=== PATIENT | female | born 1985 | race Two or more races ===

== ENCOUNTER 2025-01-15 15:04 | Emergency (ER) | payer OTHER ==
[~2025-01-15] VITALS: Ht 152.4 cm; Wt 63.5 kg
[2025-01-15] MEDS ORDERED: CEFTRIAXONE SODIUM 1,000 MG VIAL IM ONE (17:30)
[2025-01-15] MEDS ORDERED: MONTELUKAST SODIUM 10 MG TABLET PO ONE (17:30)
[2025-01-15] MEDS ORDERED: LEVALBUTEROL HCL 1.25 MG/3 ML SOLUTION IH ONE ×2 (17:30→19:37)
[2025-01-15] MEDS ORDERED: METHYLPREDNISOLONE SOD SUCC 125 MG VIAL IM ONE (17:30)
[2025-01-15] MEDS ORDERED: CEFTRIAXONE SODIUM 1,000 MG VIAL ONE (17:48)
[2025-01-15] MEDS ORDERED: METHYLPREDNISOLONE SOD SUCC 40 MG VIAL ONE (17:48)
[2025-01-15] MEDS ORDERED: LIDOCAINE HCL 1% 10ML VIAL ONE (17:48)
[2025-01-15 19:02] LABS: HEMATOCRIT 37.1 % (36.0-45.00); HEMOGLOBIN 12.9 g/dL (12.0-15.00); MEAN CELL VOLUME 77.7 fL (80.00-100.00); MEAN CORPUSCULAR HGB CONC 34.8 g/dl (32.0-36.0); PLATELET COUNT 230 K/uL (150-450); RED BLOOD COUNT 4.77 M/uL (4.00-6.00); RED CELL DISTRIBUTION WIDTH 14.3 % (11.5-14.5)
[2025-01-15] MEDS ORDERED: MEDROLPACK PO (20:37)
[2025-01-15] MEDS ORDERED: PEPCID AC20 MG PO (20:37)
[2025-01-15] MEDS ORDERED: SINGULAIR10 MG PO (20:37)
[2025-01-15] MEDS ORDERED: LEVALBUTER0.63 MG/3 IH (20:37)
[2025-01-15] MEDS ORDERED: AZITHROMYCIN500 MG PO (20:37)
== END 2025-01-15 21:12 | disposition home or self-care (01) ==
LOC: ER 15:07
PROVIDERS: General Practice
DX: J40 Bronchitis, not specified as acute or chronic (principal); J00 Acute nasopharyngitis [common cold]; Z20.822 Contact with and (suspected) exposure to COVID-19